=== PATIENT | male | born 1950 | race Caucasian/White ===

== ENCOUNTER 2022-06-18 10:30 | Day surgery (SDC) | payer OTHER ==
--- NOTE | 2022-06-14 15:01 | RAD REPORT ---
EXAM DESCRIPTION: Kathy Pa And Lat (2 Views)06/14/2022 2:46 pm CLINICAL HISTORY: Preop for cardiac catheterization COMPARISON: 2012 FINDINGS: Mild lingular opacity may represent small area of atelectasis, scarring or epicardial fat. Right lung appears clear. Heart is normal size
[2022-06-14 16:17] LABS: Absolute Lymphocytes (CBC) 1.1 K/uL (0.7-4.9); Hematocrit 46.2 % (39.6-49.0); Lymphocytes % 13.1 % (15.3-44.8); MCV 86.9 fL (80-100); MPV 9.1 fL (7.6-11.3); RBC Red Blood Cell Count 5.32 M/uL (4.33-5.43)
[2022-06-14 16:21] LABS: Protime INR 0.96
[2022-06-18] MEDS ORDERED: LIDOCAINE 1% 20 ML MDV ONE (10:52)
[2022-06-18] MEDS ORDERED: HEPA 1000U/500MLS 2,000 UNIT/1,000 ML BAG IV ONE (10:52)
[2022-06-18] MEDS ORDERED: NA CHLORIDE 0.9% 500 ML ONE (11:10)
[2022-06-18] MEDS ORDERED: FENTANYL CITR 100 MCG/2 ML ONE (11:14)
[2022-06-18] MEDS ORDERED: MIDAZOLAM HCL 2 MG/2 ML INJ ONE (11:14)
[2022-06-18] MEDS ORDERED: HEPARIN 5000 UNIT/ML 1 ML VIAL ONE (11:14)
[2022-06-18] MEDS ORDERED: VERAPAMIL HCL 10 MG/4 ML VIAL IV ONE (11:14)
[2022-06-18] MEDS ORDERED: TICAGRELOR 90 MG TABLET PO ONE (11:15)
[2022-06-18] MEDS ORDERED: CLOPIDOGREL 75 MG TABLET ONE (11:15)
[2022-06-18] MEDS ORDERED: ATROPINE SULF 1 MG/10 ML SYR IV ONE (11:15)
[2022-06-18] MEDS ORDERED: ASPIRIN 325 MG TAB ONE (11:15)
[2022-06-18] MEDS ORDERED: HEPARIN 10,000 UNIT/10 ML VIAL IV ONE (11:15)
[2022-06-18 14:07] VITALS: BP 125/61; O2SAT 99
--- NOTE | 2022-06-18 21:43 | OP ---
Date of Procedure: 06/18/2022 Surgeon: HARDIK ANTONY Procedures: 1.Selective coronary angiogram. 2.Left heart catheterization. Indication: Preop before mitral valve repair surgery. Access: Right radial artery 6-Somali closed with TR band. Complications: None. Estimated Blood Loss: Bleeding less than 10 mL. Anesthesia: Total sedation time was 25 minutes, used fentanyl and Versed. Description Of Procedure: After risks, benefits, and alternatives were explained, the patient agreed to the procedure and signed informed consent. The patient was brought into the cardiac catheterizat ion laboratory and prepped and draped in usual sterile fashion. Then I accessed right radial artery using pediatric micropuncture kit, placed 6-Somali Slender sheath and took 5-Somali Conway 4 catheter into the aortic root, engaged left main and right coronary artery, took standard views and then maco ter was advanced over the wire into the LV and measured LVEDP. Pullback did not record any gradient. I then removed the catheter and sheath, placed TR band with good hemostasis. Findings: 1.Left main: Large, normal. 2.LAD: Proximal LAD stent is widely patent. No stenosis. Then, the mid LAD diffuse 50% stenosis a nd mid to distal also with focal 50% stenosis in multiple areas. Diagonal branches are with luminal i rregularities. 3.Left circumflex: Luminal irregularities. No significant disease. 4.RCA: Large and dominant with proximal 20% and mid 30%. 5.LVEDP normal at 8 mmHg. Conclusion: 1.Mipx-[id number] coronary artery disease with patent left anterior descending artery stent. 2.Normal left ventricular end-diastolic end pressure. Recommendation: There is no need for bypass during the mitral valve repair and we will treat the cor onary artery disease medically. SR/MODL Voice ID: [id number] Report ID: [id number]
== END 2022-06-18 14:31 | disposition home or self-care (01) ==
LOC: CCL 10:30
PROVIDERS: ATTEND Internal Medicine
DX: I34.0 Nonrheumatic mitral (valve) insufficiency (principal); I25.10 Atherosclerotic heart disease of native coronary artery without angina pectoris; I10 Essential (primary) hypertension; E78.5 Hyperlipidemia, unspecified; E11.9 Type 2 diabetes mellitus without complications; Z95.5 Presence of coronary angioplasty implant and graft; F17.220 Nicotine dependence, chewing tobacco, uncomplicated; Z79.4 Long term (current) use of insulin; Z79.899 Other long term (current) drug therapy
CPT/HCPCS: 85025; 80048; 36415; 85610; 82947; 85730; 71046; 93458; C1893; Q9966; J2001; J1644 ×2; J2250; J3010; J7040; J0461